=== PATIENT | male | born 1990 | race Caucasian/White ===

== ENCOUNTER 2019-01-17 10:36 | Day surgery (SDC) | payer OTHER ==
[2019-01-17] MEDS ORDERED: Sodium Chloride 0.9% 1,000 ML IV ONE (11:07)
[2019-01-17] MEDS ORDERED: Prochlorperazine 10 MG/2 ML SDV IVPUSH ONE (11:13)
--- NOTE | 2019-01-17 11:17 | EDM.PDOC ---
ED HPI GENERAL MEDICAL PROBLEM - General Chief Complaint: Abdominal Pain Stated Complaint: LOWER RIGHT SIDE ABD PAIN Time Seen by Provider: 01/17/19 11:02 Source of Information: Reports: Patient History Limitations: Reports: No Limitations - History of Present Illness Onset: Other (last night) Onset Date: 01/16/19 Location: Reports: Abdomen (RLQ) Quality: Reports: Sharp, Stabbing Severity: Moderate Improves with: Reports: None Worsens with: Reports: None Associated Symptoms: Reports: Nausea/Vomiting Abdomen Pain Score (Numeric/FACES): 4 - Related Data Allergies Allergy/AdvReac Type Severity Reaction Status Date / Time No Known Allergies Allergy Verified 01/17/19 10:56 Home Meds: Home Meds NK [No Known Home Meds] 01/17/19 [History] Past Medical History Cardiovascular History: Reports: Other (See Below) (Prolonged QT) Other Cardiovascular History: long QT syndrome Neurological History: Reports: Vertigo Social & Family History - Tobacco Use Smoking Status *Q: Never Smoker - Recreational Drug Use Recreational Drug Use: No ED ROS GENERAL - Review of Systems Review Of Systems: See Below Constitutional: Reports: Fever, Chills, Decreased Appetite HEENT: Reports: No Symptoms Respiratory: Reports: No Symptoms Cardiovascular: Reports: No Symptoms GI/Abdominal: Reports: Abdominal Pain (RLQ), Nausea, Vomiting, Other (loose stool) : Reports: No Symptoms Musculoskeletal: Reports: No Symptoms Skin: Reports: No Symptoms Neurological: Reports: No Symptoms Psychiatric: Reports: No Symptoms ED EXAM, GENERAL - Physical Exam Exam: See Below Exam Limited By: No Limitations General Appearance: Alert, WD/WN, No Apparent Distress Throat/Mouth: Normal Inspection, Normal Lips Neck: Normal Inspection, Supple, Non-Tender Respiratory/Chest: No Respiratory Distress, Lungs Clear, Normal Breath Sounds Cardiovascular: Normal Peripheral Pulses, Regular Rate, Rhythm GI/Abdominal: Normal Bowel Sounds, Soft, Rebound, Tender Back Exam: Normal Inspection, Full Range of Motion Extremities: Normal Inspection, Normal Range of Motion Neurological: Alert, Oriented, CN II-XII Intact Psychiatric: Normal Affect, Normal Mood Skin Exam: Warm, Dry, Intact EKG INTERPRETATION EKG Date: 01/17/19 Rhythm: NSR [place]: Normal P-Wave: Present QRS: Normal ST-T: Normal QT: Normal Comparison: NA - No Prior EKG EKG Interpretation Comments: Patient has hx of prolonged QT syndrome Course - Vital Signs Last Recorded V/S: Last Vital Signs Temp 97.3 F 01/17/19 14:39 Pulse 76 01/17/19 15:01 Resp 16 01/17/19 15:01 BP 108/58 L 01/17/19 15:01 Pulse Ox 97 01/17/19 15:01 - Orders/Labs/Meds Orders: Active Orders 24 hr Category Date Time Status Peripheral IV Care [RC] . DIRECTED Care 01/17/19 11:07 Active CULTURE ANAEROBIC [RM] Routine Lab 01/17/19 14:19 Received CULTURE WOUND + SMEAR [RM] Stat Lab 01/17/19 14:19 Received Ropivacaine [Naropin 0.5%] 40 ml Med 01/17/19 14:30 Active dexAMETHasone [Dexamethasone] 8 mg EPINEPHrine [Adrenalin] 0.4 mg Sodium Chloride 0.9% [Normal Saline] 37.6 ml NERVRT ASDIRECTED Sodium Chloride 0.9% [Normal Saline] 1,000 ml Med 01/17/19 13:00 Active IV ASDIRECTED Sodium Chloride 0.9% [Normal Saline] 78 ml Med 01/17/19 11:30 Active IV ASDIRECTED Peripheral IV Insertion Adult [OM.PC] Stat Oth 01/17/19 11:06 Ordered EKG 12 Lead [EK] Routine Ther 01/17/19 11:06 Ordered Medication Orders Ropivacaine 40 ml/Dexamethasone 8 mg/Epinephrine HCl 0.4 mg/ Sodium Chloride 37.6 ml 0 ml NERVRT ASDIRECTED KO Last Admin: 01/17/19 13:41 Dose: 80 syringe Sodium Chloride (Normal Saline) 78 mls @ 3.5 mls/sec IV ASDIRECTED KO Last Admin: 01/17/19 11:40 Dose: 3.5 mls/sec Sodium Chloride (Normal Saline) 1,000 mls @ 75 mls/hr IV ASDIRECTED [facility] Labs: Laboratory Tests 01/17/19 01/17/19 01/17/19 Range/Units 11:18 11:18 11:26 WBC 14.2 H (4.5-11.0) K/uL RBC 4.92 (4.30-5.90) M/uL Hgb 14.4 (12.0-15.0) g/dL Hct 42.3 (40.0-54.0) % MCV 86 (80-98) fL MCH 29 (27-31) pg MCHC 34 (32-36) % Plt Count 292 (150-400) K/uL Neut % (Auto) 81 H (36-66) % Lymph % (Auto) 11 L (24-44) % [place] % (Auto) 7 H (2-6) % Eos % (Auto) 1 L (2-4) % Baso % (Auto) 0 (0-1) % Sodium 139 L (140-148) mmol/L Potassium 3.6 (3.6-5.2) mmol/L Chloride 103 (100-108) mmol/L Carbon Dioxide 25 (21-32) mmol/L Anion Gap 14.6 H (5.0-14.0) mmol/L BUN 13 (7-18) mg/dL Creatinine 1.0 (0.8-1.3) mg/dL Est Cr Clr Drug Dosing 119.63 mL/min Estimated GFR (MDRD) > 60 (>60) Glucose 142 H (74-106) mg/dL Calcium 9.1 (8.5-10.1) mg/dL Total Bilirubin 0.8 (0.2-1.0) mg/dL AST 15 (15-37) U/L ALT 26 (12-78) U/L Alkaline Phosphatase 46 (46-116) U/L Troponin I < 0.017 (0.000-0.056) ng/mL Total Protein 7.5 (6.4-8.2) g/dL Albumin 4.0 (3.4-5.0) g/dL Globulin 3.5 (2.3-3.5) g/dL Albumin/Globulin Ratio 1.1 L (1.2-2.2) Meds: Medications Generic Name Dose Route Start Last Admin Trade Name Freq PRN Reason Stop Dose Admin Ropivacaine 40 ml/ 0 ml 01/17/19 14:30 01/17/19 13:41 Dexamethasone 8 mg/ NERVRT 80 syringe Epinephrine HCl 0.4 mg/ Sodium ASDIRECTED KO Administration Chloride 37.6 ml Sodium Chloride 78 mls @ 3.5 mls/sec 01/17/19 11:30 01/17/19 11:40 Normal Saline IV 3.5 mls/sec ASDIRECTED KO Administration Sodium Chloride 1,000 mls @ 75 mls/hr 01/17/19 13:00 Normal Saline IV ASDIRECTED KO Discontinued Medications Generic Name Dose Route Start Last Admin Trade Name Alyce PRN Reason Stop Dose Admin Bupivacaine HCl/Epinephrine Bitart Confirm 01/17/19 12:48 01/17/19 13:53 Marcaine 0.5%/Epinephrine 1:200,000 Administered 01/17/19 12:49 30 ml Dose Administration 50 ml .ROUTE .STK-MED ONE Dexamethasone Confirm 01/17/19 13:18 Dexamethasone Administered 01/17/19 13:19 Dose 4 mg .ROUTE .STK-MED ONE Fentanyl Confirm 01/17/19 13:17 Sublimaze Administered 01/17/19 13:18 Dose 250 mcg .ROUTE .STK-MED ONE Glycopyrrolate Confirm 01/17/19 13:18 Robinul Administered 01/17/19 13:19 Dose 1 mg .ROUTE .STK-MED ONE Sodium Chloride 1,000 mls @ 1,000 mls/hr 01/17/19 11:07 01/17/19 11:30 Normal Saline IV 01/17/19 12:06 1,000 mls/hr .BOLUS ONE Administration Ampicillin Sodium/Sulbactam 100 mls @ 200 mls/hr 01/17/19 13:00 01/17/19 13: 03 Sodium 3 gm/ Sodium Chloride IV 01/17/19 13:29 200 mls/hr ONETIME ONE Administration Iopamidol 124 ml 01/17/19 11:21 01/17/19 11:40 Isovue-300 IV 01/17/19 11:22 124 ml ONETIME ONE Administration Ketorolac Tromethamine Confirm 01/17/19 13:54 Toradol Administered 01/17/19 13:55 Dose 60 mg .ROUTE .STK-MED ONE Midazolam HCl Confirm 01/17/19 13:17 Versed 1 Mg/Ml Administered 01/17/19 13:18 Dose 2 mg .ROUTE .STK-MED ONE Morphine Sulfate 4 mg 01/17/19 12:02 01/17/19 12:09 Morphine IVPUSH 01/17/19 12:03 4 mg ONETIME ONE Administration Naloxone HCl Confirm 01/17/19 14:04 Narcan Administered 01/17/19 14:05 Dose 0.4 mg .ROUTE .STK-MED ONE Neostigmine Methylsulfate Confirm 01/17/19 13:18 Neostigmine Administered 01/17/19 13:19 Dose 5 mg .ROUTE .STK-MED ONE Ondansetron HCl Confirm 01/17/19 13:18 Zofran Administered 01/17/19 13:19 Dose 4 mg .ROUTE .STK-MED ONE Prochlorperazine Edisylate 5 mg 01/17/19 11:13 01/17/19 11:30 Compazine IVPUSH 01/17/19 11:14 5 mg ONETIME ONE Administration Propofol Confirm 01/17/19 13:18 Diprivan 20 Ml Administered 01/17/19 13:19 Dose 200 mg .ROUTE .STK-MED ONE Rocuronium Luana Confirm 01/17/19 13:18 Zemuron Administered 01/17/19 13:19 Dose 50 mg .ROUTE .STK-MED ONE - Radiology Interpretation CT Results Date: 01/17/19 - Re-Assessments/Exams Free Text/Narrative Re-Assessment/Exam: 01/17/19 12:03 requesting pain medicine; 4 mg MS IVP ordered. Free Text/Narrative Re-Assessment/Exam: 01/17/19 12:41 CT of abdomen/pelvis shows uncomplicated appendicitis Dr. Hassan, surgeon informed; he will be a TF case Unasyn 3 G ordered IV; Consent to be obtained. Departure - Departure Time of Disposition: 13:00 Disposition: Admitted As Inpatient 65 Condition: Fair Clinical Impression: Appendicitis - Discharge Information *PRESCRIPTION DRUG MONITORING PROGRAM REVIEWED*: Not Applicable *COPY OF PRESCRIPTION DRUG MONITORING REPORT IN PATIENT KAVEH: Not Applicable - Problem List & Annotations (1) Appendicitis SNOMED Code(s): 28819357 Code(s): K37 - UNSPECIFIED APPENDICITIS Status: Acute Priority: Medium Current Visit: Yes Qualifiers: Appendicitis type: acute appendicitis Acute appendicitis type: unspecified acute appendicitis type Qualified Code(s): K35.80 - Unspecified acute appendicitis - My Orders Last 24 Hours: My Active Orders 01/17/19 11:06 Peripheral IV Insertion Adult [OM.PC] Stat EKG 12 Lead [EK] Routine 01/17/19 11:07 Peripheral IV Care [RC] . DIRECTED 01/17/19 11:30 Sodium Chloride 0.9% [Normal Saline] 78 ml IV ASDIRECTED 01/17/19 13:00 Sodium Chloride 0.9% [Normal Saline] 1,000 ml IV ASDIRECTED - Assessment/Plan Last 24 Hours: My Active Orders 01/17/19 11:06 Peripheral IV Insertion Adult [OM.PC] Stat EKG 12 Lead [EK] Routine 01/17/19 11:07 Peripheral IV Care [RC] . DIRECTED 01/17/19 11:30 Sodium Chloride 0.9% [Normal Saline] 78 ml IV ASDIRECTED 01/17/19 13:00 Sodium Chloride 0.9% [Normal Saline] 1,000 ml IV ASDIRECTED
[2019-01-17] MEDS ORDERED: Iopamidol 500 ML BOTTLE IV ONE (11:21)
[2019-01-17] MEDS ORDERED: Morphine 4 MG/ML Syringe IVPUSH ONE (12:02)
--- NOTE | 2019-01-17 12:28 | CRLCT ---
INDICATION: Right lower quadrant pain TECHNIQUE: CT abdomen and pelvis acquired with IV contrast. 124 cc Isovue-300 COMPARISON: None FINDINGS: Lower chest: Unremarkable. Liver: Unremarkable. Spleen: Unremarkable. Pancreas: Unremarkable. Gallbladder and bile ducts: Unremarkable. Kidneys: Unremarkable. Adrenal glands: Unremarkable. GI tract: Unremarkable. The appendix is thick-walled, fluid-filled and dilated to 13 millimeters with a 9 millimeter appendicular. Findings consistent with uncomplicated acute appendicitis. Vascular structures: Unremarkable. Lymph nodes: Unremarkable. Miscellaneous: Unremarkable. No free air. Small amount of fluid in the pelvis. Pelvic Organs: Unremarkable. Bones: Unremarkable for age. IMPRESSION: Findings consistent with uncomplicated acute appendicitis. Dictated by Gianluca Serra MD @ 01/17/2019 12:26:47 PM Please note that all CT scans at this facility use dose modulation, iterative reconstruction, and/or weight-based dosing when appropriate to reduce radiation dose to as low as reasonably achievable. Dictated by: Gianluca Serra MD @ 01/17/2019 12:26:57 (Electronically Signed)
[2019-01-17] MEDS ORDERED: Ampicillin/Sulbactam Na 3 GM in Sodium Chloride 0.9% 100 ML IV ONE ×2 (12:37→13:00)
[2019-01-17] MEDS ORDERED: Bupivacaine 0.5%/EPINEPHrine 1:200,000 50 ML MDV ONE (12:48)
[2019-01-17] MEDS ORDERED: Sodium Chloride 0.9% 1,000 ML IV SCH (13:00)
[2019-01-17] MEDS ORDERED: Midazolam 1 MG/ML 2 ML SDV ONE (13:17)
[2019-01-17] MEDS ORDERED: fentaNYL 250 MCG/5 ML SDV ONE (13:17)
[2019-01-17] MEDS ORDERED: Ondansetron 4 MG/2 ML SDV ONE (13:18)
[2019-01-17] MEDS ORDERED: Neostigmine Methylsulfate 1 MG/ML 5 ML Syringe ONE (13:18)
[2019-01-17] MEDS ORDERED: Rocuronium 50 MG/5 ML Vial ONE (13:18)
[2019-01-17] MEDS ORDERED: Glycopyrrolate 0.2 MG/ML 5 ML MDV ONE (13:18)
[2019-01-17] MEDS ORDERED: Dexamethasone 4 MG/ML SDV ONE (13:18)
[2019-01-17] MEDS ORDERED: Propofol 200 MG/20 ML SDV ONE (13:18)
[2019-01-17] MEDS ORDERED: Ketorolac 60 MG/2 ML SDV ONE (13:54)
[2019-01-17] MEDS ORDERED: Naloxone 0.4 MG/ML SDV ONE (14:04)
[2019-01-17] MEDS ORDERED: Ropivacaine 40 ML, dexAMETHasone 8 MG, EPINEPHrine 0.4 MG, Sodium Chloride 0.9% 37.6 ML NERVRT SCH ×4 (14:30)
[2019-01-17] MEDS ORDERED: Ondansetron 4 MG/2 ML SDV IVPUSH PRN (15:20)
[2019-01-17] MEDS ORDERED: hydrOXYzine HCl 100 MG/2 ML SDV IM PRN (15:20)
[2019-01-17] MEDS ORDERED: HYDROmorphone 0.5 MG/0.5 ML Syringe IVPUSH PRN (15:20)
[2019-01-17] MEDS ORDERED: HYDROmorphone 1 MG/ML Syringe IV PRN (15:20)
[2019-01-17] MEDS ORDERED: Pantoprazole 40 MG Vial IVPUSH SCH (16:00)
[2019-01-17] MEDS: Dextrose 5%-Lactated Ringers 1,000 ML IV SCH ×2 (16:11→23:06)
[2019-01-17] MEDS: Ampicillin/Sulbactam Na 3 GM in Sodium Chloride 0.9% 100 ML IV SCH (17:23)
[2019-01-18] MEDS: Ampicillin/Sulbactam Na 3 GM in Sodium Chloride 0.9% 100 ML IV SCH ×2 (00:12→05:08)
[2019-01-18] MEDS: Dextrose 5%-Lactated Ringers 1,000 ML IV SCH (05:08)
[2019-01-18] MEDS ORDERED: Magnesium Hydroxide 400 MG/5 ML Susp 30 ML Cup PO PRN (08:20)
--- NOTE | 2019-01-18 10:15 | DISCH ---
ADMISSION DIAGNOSIS: Acute appendicitis. DISCHARGE DIAGNOSES: Diagnostic laparoscopy with partial cecectomy and removal of overlying appendix and drainage of periappendiceal abscess for acute appendicitis with extensive ischemia/necrosis to base of the cecum and pericecal abscess. Date of surgery: 01/17/2019. HISTORY: Gavin Hester is a 28-year-old male who presented to the emergency room with abdominal pain. After preoperative evaluation and discussion of possible risks and possible complications, he wished to proceed with surgical procedure. HOSPITAL COURSE: Gavin had his surgery on 01/17/2019. He had no operative complications. On postoperative day #1, he was able to be discharged to home. PHYSICAL EXAMINATION: GENERAL: Gavin is a 28-year-old male. VITAL SIGNS: Height is 6 feet, weight is 182 pounds, BMI 24. TPR 97.3, 72, 16, blood pressure 100/57. HEENT: Negative. NECK: Supple. HEART: Regular rate and rhythm. LUNGS: Clear. ABDOMEN: Dressing dry and intact. Abdominal binder is on. EXTREMITIES: Without peripheral edema. DISPOSITION: Discharged to home. CONDITION: Stable and improving. FOLLOWUP: To follow up with PCP in [place] in about 10 days to have sutures removed. HOME MEDICATIONS: 1. Dilaudid 2 mg every 6 hours p.r.n. severe pain, #28. 2. Augmentin 875 mg one tablet b.i.d. 10 days. 3. Milk of magnesia 30 mL to take 1 daily, two were sent home with the patient to take daily p.r.n. constipation. DIET: Regular diet. ACTIVITY: No lifting greater than 10 pounds for 1 week, and to walk 6 times daily. Use incentive spirometer 10 times every hour while awake for 1 week. May shower. Do not drive while on narcotic medications.
--- NOTE | 2019-01-23 11:38 | OR ---
DATE OF PROCEDURE: 01/17/2019 PREOPERATIVE DIAGNOSIS: Acute appendicitis. POSTOPERATIVE DIAGNOSES: 1. Acute appendicitis with extension of skin necrosis onto base of cecum. 2. Pericecal abscess. OPERATIVE PROCEDURES: Diagnostic laparoscopy with, 1. Partial cecectomy including removal of overlying appendix (99464). 2. Drainage of pericecal abscess ([id number]). ANESTHESIA: General. INDICATION FOR PROCEDURE: This is a 28-year-old visiting from [facility], who presented with a picture of acute appendicitis, both clinically and radiologically. After discussion with the patient and , they wished to proceed with a laparoscopic appendectomy. Potential risks including bleeding, infection, injury to underlying viscera, need for more extensive procedure beyond appendectomy, and possible need for an open approach were all reviewed, and the patient wishes to proceed. DETAILS OF PROCEDURE: The patient was taken to the operating room and placed in a supine position. After general endotracheal anesthesia was induced, a Doshi catheter was inserted, which was removed at the end of the procedure, and the abdomen was prepped and draped. Three fingerbreadths superior and three fingerbreadths to the left of the umbilicus, a transverse incision was made, and the peritoneal cavity entered under direct vision with an Optiview trocar, inflated to 15 mmHg pressure with CO2. Laparoscope was reinserted and no underlying trocar insertion site injuries were seen. Following this, trocars were placed in the left lower quadrant and right upper quadrant, and the lower abdomen examined. As one mobilized the appendix upward, the amount of inflammation was noted to extend well onto the cecum and that area appeared to be markedly inflamed and possibly somewhat necrotic. The mesoappendix was then divided down to the level of the junction of the appendix and cecal base with Harmonic scalpel, and the cecum then divided at a point roughly 1.5 cm away from the cecal base with a JULIA purple load, where the bowel wall at that point appeared to be relatively uninflamed and amenable to satisfactory staple line. This was accomplished with single firing of JULIA purple load. As the appendix had been mobilized upward, there was roughly a 10 abscess present adjacent to the cecum. The pericecal abscess had been evacuated and cultures were obtained. At this point, after removal of the specimen through a specimen bag in the left lower quadrant, the area of dissection was inspected and, at that point, the staple lines appeared to be intact. No significant bleeding was noted. There did not appear to be any remaining purulence and a drain was felt not to be necessary. Trocars were then removed, and the peritoneal cavity deflated. The fascia at each of the sites was closed with 0 Vicryl stitch, and the skin with 4-0 Vicryl skin stitch. Dressing was applied. The patient was taken to the recovery room in a satisfactory condition. Gamal Hassan MD /[id number]
== END 2019-01-18 09:45 | disposition home or self-care (01) ==
LOC: JP.ED 10:36 → JP.SDS 12:45 → JP.MS 14:30 → UNDOADMIN 14:30 → JP.MS 14:30 → UNDODISIN 01-18 09:45 → JP.SDS 01-18 09:45
PROVIDERS: ATTEND Surgery
DX: K35.33 Acute appendicitis with perforation, localized peritonitis, and gangrene, with abscess (principal)
CPT/HCPCS: 36415; 44204; 44970; 74177; 80053; 84484; 85025; 87070; 87075; 87077; 87186; 87205; 93005; 96361; 96374; 96375; 99285; A9270; C9113; J0171; J0295; J0780; J1100; J1885; J2250; J2270; J2310; J2704; J2710; J2795; J3010; J3490; J7030; J7042; J7050; Q9967; 88304; J2405